=== PATIENT | female | born 1975 | race Caucasian/White ===

== ENCOUNTER 2024-07-04 15:52 | Emergency (ER) | payer MEDICAID, OTHER ==
[~2024-07-04] VITALS: Ht 160 cm; Wt 70.0 kg
[2024-07-04 16:00] VITALS: TEMP 98; O2SAT 100
[2024-07-04 17:06] LABS: BASOPHILS % 0.9 % (0.0-2.0); EOSINOPHILS % 3.6 % (0.0-5.0); HEMATOCRIT. 36.8 % (36.0-48.0); HEMOGLOBIN. 12.5 g/dL (12.0-16.0); LYMPHOCYTES % 28.8 % (20.0-50.0); MEAN CORPUSCULAR HEMOGLOBIN 30.8 pg (28.0-32.0); MEAN CORPUSCULAR HGB CONC 33.9 g/dL (31.0-37.0); MEAN CORPUSCULAR VOLUME 91.1 fL (81.0-99.0); MEAN PLATELET VOLUME 8.3 fl (7.4-10.4); MONOCYTES % 5.6 % (2.0-8.0); NEUTROPHILS % 61.1 % (40.0-76.0); PLATELET 286 x1000/uL (130-400); RED BLOOD CELL COUNT 4.04 mill/uL (4.2-5.4); RED CELL DISTRIBUTION WIDTH 13.6 % (11.6-14.6); WHITE BLOOD COUNT 8.3 x1000/uL (4.5-11.0)
[2024-07-04] MEDS: SODIUM CHLORIDE 0.9% 1,000 ML IV ONE (17:11)
[2024-07-04 17:14] LABS: CARBON DIOXIDE 27 mEq/L (21-32); CHLORIDE 104 mEq/L (98-107); POTASSIUM 3.8 mEq/L (3.5-5.1); SODIUM 138 mEq/L (136-145)
[2024-07-04] MEDS: ASPIRIN 81MG TABLET PO ONE (17:14)
[2024-07-04 17:15] LABS: CALCIUM 9.8 mg/dL (8.7-10.4)
[2024-07-04 17:16] LABS: D-DIMER < 0.19 mg/L FEU (<0.50); INR 0.9; PARTIAL THROMBOPLASTIN TIME 26.2 sec (23.4-31.0); PROTHROMBIN TIME 10.4 sec (9.6-11.0)
[2024-07-04 17:19] LABS: CREATININE 0.9 mg/dL (0.6-1.0); GLUCOSE 160 mg/dL (70-105)
[2024-07-04 17:20] LABS: UREA NITROGEN BLOOD 15 mg/dL (9-23)
[2024-07-04 17:21] LABS: TROPONIN I HIGH SENSITIVITY < 4 ng/L (3.0-34)
[2024-07-04 17:24] LABS: THYROID STIMULATING HORMONE 0.76 uIU/mL (0.55-4.78)
[2024-07-04 17:27] LABS: HCG SCREEN NEGATIVE
[2024-07-04 17:51] LABS: CLARITY URINE CLEAR (CLEAR); COLOR URINE YELLOW (YELLOW); GLUCOSE URINE NEGATIVE (NEGATIVE); KETONES URINE NEGATIVE (NEGATIVE); LEUKOCYTE ESTERASE URINE NEGATIVE (NEGATIVE); NITRITE URINE NEGATIVE (NEGATIVE); OCCULT BLOOD URINE TRACE (NEGATIVE); PROTEIN URINE TRACE (NEGATIVE); UROBILINOGEN URINE 0.2 E.U./dL (0.2-1.0)
[2024-07-04 18:07] LABS: BACTERIA URINE 2+; RBC URINE 0-2 /hpf (0-2); SQUAMOUS EPITHELIAL CELL URINE 1+ /lpf (RARE/1+)
[2024-07-04 18:08] LABS: WBC URINE 0-2 /hpf (0-2)
[2024-07-04 21:04] VITALS: BP 150/83; PULSE 63; RESP 11; O2SAT 97
== END 2024-07-04 21:14 | disposition left against medical advice (07) ==
LOC: ER 15:52 → EDBEDREQ 16:48 → ER 21:14
DX: R00.2 Palpitations (principal); R00.0 Tachycardia, unspecified
CPT/HCPCS: 80048; 81003; 84703; 84443; 85025; 85379; 85610; 85730; 84484; 36415; 71045; 93005; 96360; 99285; Z7610 ×3; J7030